=== PATIENT | male | born 1955 | race Caucasian/White ===

== ENCOUNTER 2018-04-10 15:17 | Emergency (ER) | payer MEDICARE, BC ==
[2018-04-10 15:25] VITALS: BP 131/82; PULSE 78; RESP 16; TEMP 97.8; O2SAT 100
--- NOTE | 2018-04-10 16:12 | ED PDOC ---
Lower Extremity Pain/Injury Time Seen by Provider: 04/10/18 15:33 Chief Complaint (Nursing): Lower Extremity Problem/Injury Chief Complaint (Provider): Right Ankle Injury History Per: Patient History/Exam Limitations: no limitations Onset/Duration Of Symptoms: Days Current Symptoms Are (Timing): Still Present Additional Complaint(s): 63 year old male presents to the emergency department for evaluation of right ankle injury. Patient states that he was born with club feet and has had multiple surgical procedures in the 60's to repair them. He reports that he mendosa shasn o issues since. Patient further states that this weekend he was at a wedding and dancing alot and felt a soreness to the back of his ankle and while walking up a flight of stairs he felt a pop prompting his ED visit. Patient reports localized pain to the ankle Has not taken any medications prior to arrival. PMD: Dr. Matamoros Past Medical History Reviewed: Historical Data, Nursing Documentation, Vital Signs Vital Signs: Last Vital Signs Temp 97.8 F 04/10/18 15:23 Pulse 78 04/10/18 15:23 Resp 16 04/10/18 15:23 BP 131/82 04/10/18 15:23 Pulse Ox 100 04/10/18 15:23 - Medical History PMH: Arthritis (C-spine, AC joint), Hypercholesterolemia Denies: Chronic Kidney Disease - Surgical History Surgical History: Appendectomy Other surgeries: Foot Procedures - Family History Family History: States: CAD (father at 64 of [place]) - Living Arrangements Living Arrangements: With Family - Social History Current smoker - smoking cessation education provided: Yes Alcohol: None Drugs: Denies - Immunization History Hx Tetanus Toxoid Vaccination: No Hx Influenza Vaccination: No Hx Pneumococcal Vaccination: No - Home Medications Home Medications: Ambulatory Orders Medication Instructions Recorded Ca Pantothenate/Folic Acid/V [Once 1 tab PO DAILY 07/06/15 Daily Multi-Vitamin] Chondroitin Sulf/Glucosamine 1 cap PO DAILY 07/06/15 [Glucosamine & Chondroitin] Cod Liver Oil 1 cap PO DAILY 07/06/15 Fish Oil [Prolinic] 1 cap PO DAILY 07/06/15 Rosuvastatin Calcium [Crestor] 20 mg PO DAILY 07/06/15 Aspirin [Ecotrin] 81 mg PO DAILY #0 tabec 07/07/15 Gabapentin [Neurontin] 100 mg PO TID #0 cap 07/07/15 Meloxicam [Mobic] 15 mg PO DAILY PRN #14 tab 04/10/18 - Allergies Allergies/Adverse Reactions: Allergies Allergy/AdvReac Type Severity Reaction Status Date / Time No Known Allergies Allergy Verified 04/10/18 15:23 Review of Systems Musculoskeletal: Positive for: Other (right ankle pain) Physical Exam - Reviewed Nursing Documentation Reviewed: Yes Vital Signs Reviewed: Yes - Physical Exam Appears: Positive for: Non-toxic, No Acute Distress Head Exam: Positive for: NORMAL INSPECTION Skin: Positive for: Normal Color, Warm, Dry. Negative for: Rash Eye Exam: Positive for: Normal appearance, EOMI, PERRL Extremity: Positive for: Normal ROM (Ambulatory in ED), Tenderness (tenderness to the posterior ankle no effusion no skin break no ecchymosis), Capillary Refill (good cap refills and good pulses), Other (multiple well healed scars to right ankle). Negative for: Deformity, Swelling Neurologic/Psych: Positive for: Alert, Oriented - ECG O2 Sat by Pulse Oximetry: 100 (RA) Pulse Ox Interpretation: Normal Medical Decision Making Medical Decision Makin Initial Impression 63 year old male presenting with acute ankle pain Initial plan: * RAD right ankle 3 views * Reevaluation * consult to podiatry 1630 Case discussed with podiatry resident, Dr Jerome, who is agreeable to evaluating patient in ED. XR reviewed, radiology report follows PROCEDURE: Right Ankle Radiographs. HISTORY: s/p fall, hx of clubfoot surgery 1967 /surgery to ankle COMPARISON: None FINDINGS: BONES: No fracture. Inferior calcaneal spur. JOINTS: Midfoot -hindfoot osteoarthritis. Ankle mortise maintained. Talar dome intact SOFT TISSUES: Extensive ossification throughout the Achilles tendon expected position spanning 13 cm in cephalo caudal extent with an AP dimension of 6.2 cm. Findings are compatible with prior/remote trauma here OTHER FINDINGS: None. IMPRESSION: No acute fracture or dislocation. Other findings as above 1640 Podiatry at bedside. 1715 Zaragoza dressing placed by Podiatry. NV intact after placement. Patient provided with crutches and instructed on crutch walking. Per podiatry evaluation, patient to be discharged with follow up with Dr Dimas Killian ([phone]). On re-evaluation, patient reports improvement of symptoms. On exam, patient remains AAOx3, in no acute distress. On exam, neck is supple, lungs CTA, cardiac RRR, neuro exam shows no focal findings. VSS, stable for discharge. Diagnostic results d/w the patient in great detail. Dx of acute ankle pain, possible achilles injury d/w the patient. Based on history, exam and diagnostic results plan will be for discharge and outpatient follow up with podiatry. Advised to follow up with primary care physician in 1-2 days without fail. Advised to take medication as prescribed. Return to the emergency room at any time for any new or worsening symptoms. Patient states he fully agrees with and understands discharge instructions. States that he agrees with the plan and disposition. Verbalized and repeated discharge instructions and plan. I have given the patient opportunity to ask any additional questions. Documented by Ria Hull acting as a scribe for Stephanie Sepulveda PA-C. All medical record entries made by the Scribe were at my direction and personally dictated by me. I have reviewed the chart and agree that the record accurately reflects my personal performance of the history, physical exam, medical decision making, and the department course for this patient. I have also personally directed, reviewed, and agree with the discharge instructions and disposition. Disposition - Clinical Impression Clinical Impression: Ankle injury, Achilles tendon injury - Patient ED Disposition Is Patient to be Admitted: No Counseled Patient/Family Regarding: Studies Performed, Diagnosis, Need For Followup, Rx Given - Disposition Referrals: Sonya Killian DPM [Medical Doctor] - Disposition: Routine/Home Disposition Time: 17:12 Condition: STABLE Additional Instructions: FOLLOW UP WITH PODIATRY, DR SONYA GILLIS. CALL [phone] TO SCHEDULE OUTPATIENT APPOINTMENT. RETURN TO ED WITH ANY NEW OR WORSENING SYMPTOMS. Prescriptions: Meloxicam [Mobic] 15 mg PO DAILY PRN #14 tab PRN Reason: Pain, Moderate (4-7) Instructions: Achilles Tendon Rupture (DC), Ankle Sprain Forms: [employer] (Greenlandic) Print Language: CZECH - POA Present On Arrival: None
--- NOTE | 2018-04-10 16:27 | RAD ---
PROCEDURE: Right Ankle Radiographs. HISTORY: s/p fall, hx of clubfoot surgery 1966 /surgery to ankle COMPARISON: None FINDINGS: BONES: No fracture. Inferior calcaneal spur. JOINTS: Midfoot -hindfoot osteoarthritis. Ankle mortise maintained. Talar dome intact SOFT TISSUES: Extensive ossification throughout the Achilles tendon expected position spanning 13 cm in cephalo caudal extent with an AP dimension of 6.2 cm. Findings are compatible with prior/remote trauma here OTHER FINDINGS: None. IMPRESSION: No acute fracture or dislocation. Other findings as above
--- NOTE | 2018-04-10 16:28 | CP.PCM.CON ---
History of Present Illness - History of Present Illness History of Present Illness: Podiatry - Dr. Killian 63 year old male patient PMHx HLD, hx of bilateral clubfoot, seen and evaluated in ED regarding right ankle pain. Patient states this past weekend he was at a beach wedding and was dancing and walking around barefoot; reports that on Monday while walking on the beach he felt a pop in the back of his ankle. Patient states he decided to present to [facility] ED for further evaluation since he was born with club feet and has had several operations in the 60s to the affected limb. At present, patient reports pain with ambulation, no pain at rest. Admits to taking Tylenol for alleviation of symptoms. Offers no other pedal complaints. Review of Systems - Review of Systems All systems: reviewed and no additional remarkable complaints except (as per HPI ) Past Patient History - Infectious Disease Hx of Infectious Diseases: None - Past Medical History & Family History Past Medical History?: Yes - Past Social History Alcohol: None Drugs: Denies - CARDIAC Hx Hypercholesterolemia: Yes - PULMONARY Hx Respiratory Disorders: No - NEUROLOGICAL Hx Neurological Disorder: No - HEENT Hx HEENT Problems: No - RENAL Hx Chronic Kidney Disease: No - ENDOCRINE/METABOLIC Hx Endocrine Disorders: No - HEMATOLOGICAL/ONCOLOGICAL Hx Blood Disorders: No - INTEGUMENTARY Hx Dermatological Problems: No - MUSCULOSKELETAL/RHEUMATOLOGICAL Hx Arthritis: Yes (C-spine, AC joint) - GENITOURINARY/GYNECOLOGICAL Hx Genitourinary Disorders: No - PSYCHIATRIC Hx Substance Use: No - SURGICAL HISTORY Hx Appendectomy: Yes - ANESTHESIA Hx Anesthesia: Yes Hx Anesthesia Reactions: No Meds Home Medications: Home Medication List Medication Instructions Recorded Confirmed Type Meloxicam [Mobic] 15 mg PO DAILY PRN #14 tab 04/10/18 Rx Allergies/Adverse Reactions: Allergies Allergy/AdvReac Type Severity Reaction Status Date / Time No Known Allergies Allergy Verified 04/10/18 15:23 Physical Exam - Constitutional Appears: Well, Non-toxic, No Acute Distress - Extremities Exam Additional comments: VASC: DP and PT pulses palpable 2/4 b/l. CFT <3 seconds to digits x10. Temperature gradient cool to cool bilateral. Nonpitting edema noted circumfirentially around right ankle joint. NEURO: Gross sensation intact bilaterally. DERM: No open lesions noted. Well-healed cicatrices noted to anterior and lateral aspects of right foot and ankle. No erythema noted. Skin diffusely dry. ORTHO: LLE=WNL RLE=s/p clubfoot reconstruction. Pain on palpation right achilles tendon with questionable dell present. No pain on palpation at Achilles insertion; no pain upon calcaneal compression; no pain on palpation malleoli; no pain upon tib-fib compression; no pain on palpation peroneal tendons, posterior tibial tendons; no pain on palpation anterior ankle joint. Ankle joint ROM limited with tenderness at Achilles tendon upon passive and active ROM. Muscle strength 5/5 for all dorsiflexors and plantarflexors, 0/5 for all inverters and everters. - Neurological Exam Neurological exam: Alert, Oriented x3 - Psychiatric Exam Psychiatric exam: Normal Affect, Normal Mood Results - Vital Signs Recent Vital Signs: Last Vital Signs Temp 97.8 F 04/10/18 15:23 Pulse 78 04/10/18 15:23 Resp 16 04/10/18 15:23 BP 131/82 04/10/18 15:23 Pulse Ox 100 04/10/18 16:21 Assessment & Plan - Assessment and Plan (Free Text) Assessment: 63 year old male PMHx HLD, hx of bilateral clubfeet with right Achilles tendon injury Plan: Patient seen and evaluated Discussed with attending, Dr. Killian Right ankle XR reviewed: Extensive ossification throughout the Achilles tendon spanning 13cm in length with AP dimension of 6.2cm. Findings are compatible with prior/remote trauma. -Discussed with patient the presence of defect within the calcification of Achilles tendon of indeterminate chronicity, possible acute injury within the calcification Zaragoza dressing applied to RLE. Patient to be NWB RLE with the assistance of crutches Advised patient to keep dressing clean/dry/intact until follow up visit Recommend RICE therapy Patient to follow up with Dr. Killian in office upon discharge Pain control per ED Stable for dc per podiatry Thank you for the consult
== END 2018-04-10 17:30 | disposition home or self-care (01) ==
LOC: H.ER 15:17
DX: S86.001A Unspecified injury of right Achilles tendon, initial encounter (principal); F17.200 Nicotine dependence, unspecified, uncomplicated; Z79.82 Long term (current) use of aspirin; E78.00 Pure hypercholesterolemia, unspecified; X58.XXXA Exposure to other specified factors, initial encounter